=== PATIENT | male | born 1940 | race Caucasian/White ===

== ENCOUNTER 2023-01-25 11:31 | Emergency (ER) | payer MEDICARE, OTHER ==
[~2023-01-25] VITALS: Ht 182.9 cm; Wt 90.0 kg
[2023-01-25 12:15] VITALS: BP 147/88
[2023-01-25 12:30] VITALS: BP 106/66
[2023-01-25 12:45] VITALS: BP 120/72
[2023-01-25 13:00] VITALS: BP 127/74
[2023-01-25] MEDS ORDERED: DECADRON4 MG PO ×2 (13:04→13:48)
[2023-01-25 13:08] VITALS: BP 127/74
== END 2023-01-25 13:24 | disposition home or self-care (01) ==
LOC: ED 11:31
DX: L50.9 Urticaria, unspecified (principal); I25.2 Old myocardial infarction; Z86.73 Personal history of transient ischemic attack (TIA), and cerebral infarction without residual deficits

== ENCOUNTER 2023-01-27 09:43 | Emergency (ER) | payer MEDICARE, OTHER ==
[~2023-01-27] VITALS: Ht 182.9 cm; Wt 79.8 kg
[~2023-01-27 09:43] MED LIST: DECADRON4 MG PO
[2023-01-27] MEDS ORDERED: LEVOCETIRIZINE D5 MG PO (12:19)
[2023-01-27] MEDS ORDERED: PEPCID20 MG PO (12:19)
[2023-01-27] MEDS ORDERED: DEXAMETHASON6 MG PO (12:19)
[2023-01-27 13:01] VITALS: BP 128/78
== END 2023-01-27 13:10 | disposition home or self-care (01) ==
LOC: ED 09:43
DX: L50.9 Urticaria, unspecified (principal); I25.2 Old myocardial infarction; Z86.73 Personal history of transient ischemic attack (TIA), and cerebral infarction without residual deficits